=== PATIENT | male | born 1965 | race Hispanic/Latino ===

== ENCOUNTER 2017-04-09 21:48 | Emergency (ER) | payer BC ==
[2017-04-09 21:54] VITALS: BP 149/79; PULSE 78; RESP 22; TEMP 98; O2SAT 99
[2017-04-09 22:40] VITALS: BMI 30.1
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
== END 2017-04-10 01:41 | disposition home or self-care (01) ==
LOC: H.ER 21:48
DX: S09.90XA Unspecified injury of head, initial encounter (principal); S20.219A Contusion of unspecified front wall of thorax, initial encounter; T14.8 Other injury of unspecified body region; Y04.0XXA Assault by unarmed brawl or fight, initial encounter; Y92.89 Other specified places as the place of occurrence of the external cause